=== PATIENT | female | born 1965 | race African-American/Black ===

== ENCOUNTER 2017-08-05 08:21 | Emergency (ER) | payer MEDICARE, MEDICAID ==
[~2017-08-05] VITALS: Ht 167.6 cm; Wt 115.0 kg
[~2017-08-05 08:21] MED LIST: BENZ100 PO; BUPR-197 PO; CYCL-36 PO; EXCUSE; FLON0.053; MAGN1SOL2 PO; MEDR4PAK3 PO; MMW SS; MUCI600T PO; NAPR-576 PO; PRIL20TA2 PO; PROG1CAP21 PO; PROT40TA PO; ZYRT10TA12 PO; [UNRECOGNIZED DRUG - CODE] PO; [UNRECOGNIZED DRUG - REMARK]
[2017-08-05 08:23] VITALS: BP 130/88; PULSE 81; RESP 13; TEMP 98.5; O2SAT 98
--- NOTE | 2017-08-05 08:51 | PD ---
HPI Chief Complaint: Musculoskeletal Complaint Time Seen by Provider: 08:29 Travel History International Travel<30 days: No Contact w/Intl Traveler<30days: No Traveled to known affect area: No History of Present Illness HPI Patient comes in complaining of right knee pain intermittently over the past month and is hoping to get an x-ray. Patient denies any trauma. Patient describes pain as an achy soreness that is worse with resting and improves with movement. Patient denies doing anything for this. Pain is primarily medial anterior aspects radiates to the posterior aspect of her right knee. Denies any numbness or tingling. PFSH Past Medical History GERD: Yes Menopausal: Yes Past Surgical History Eye Surgery: Yes Social History Alcohol Use: No Tobacco Use: No Substance Use: No Allergies-Medications (Allergen,Severity, Reaction): Coded Allergies: fluoxetine (Verified Allergy, Intermediate, Irritability/Anxiety, 08/05/17) Sulfa (Sulfonamide Antibiotics) (Verified Allergy, Unknown, 08/05/17) penicillin G (Verified Allergy, Unknown, 08/05/17) Reported Meds & Prescriptions Reported Meds & Active Scripts Active Medrol Dosepak (Methylprednisolone) 4 Mg Jasmeet 4 Mg PO DIRECTED TAKE DIRECTED Prevacid 15 Mg Cap (Lansoprazole) 15 Mg Capcr 15 Mg PO DAILY Naproxen 500 Mg Tab 500 Mg PO BID Flexeril (Cyclobenzaprine HCl) 10 Mg Tab 10 Mg PO HS Protonix (Pantoprazole Sodium) 40 Mg Tab 40 Mg PO DAILY Mucinex (Guaifenesin) 600 Mg Tabcr 600 Mg PO BID Flonase (Fluticasone Propionate) 0.05 % Naspr 2 Spr NA DAILY 2 SPRAYS EACH NOSTRIL Zyrtec (Cetirizine HCl) 10 Mg Tab 10 Mg PO HS Magic Mouthwash-Diphenhy Formula (Lidocaine/Diphenhydr/Alum/Mg/Simeth) Ml 15 Ml SS Q3HPRN MAGIC MOUTHWASH=MIX 1/3 VISCOUS LIDOCAINE(60 ML),1/3 MAALOX(60 ML), AND 1/3 BENADRYL(60 ML) TO EQUAL 180 ML TOTAL VOLUME Tessalon Perles (Benzonatate) 100 Mg Cap 100 Mg PO TIDPRN Wellbutrin (Bupropion HCl) 100 Mg Tab 100 Mg PO BID [Permission] Until further notice, please allow Ms. Liana Vega to perform other tasks besides the Timothy Machine while we strengthen her lower back. We will re-evaluate her back in one month. [Excuse] [Permission] Please allow Ms. Vega to use the Restroom as needed. It is necessary for her health. Magnesium Citrate 300 Ml Soln 300 Ml PO DIRECTED Reported Prometrium (Progesterone) 200 Mg Cap 200 Mg PO DAILY Prilosec Otc (Omeprazole Magnesium) 20 Mg Tab 20 Mg PO PRN PRN Review of Systems Except as stated in HPI: all other systems reviewed are Neg Physical Exam Narrative GENERAL: Well-developed, overly nourished, in no acute distress, and non-ill appearing. SKIN: Focused skin assessment warm and dry. HEAD: Atraumatic. Normocephalic. ENT: No nasal bleeding or discharge. Mucous membranes pink and moist. NECK: Trachea midline. Supple. No nuclear rigidity. CARDIOVASCULAR: Dorsal pulses 2+, intact, and equal bilaterally. Capillary refill less than 2 seconds. RESPIRATORY: No accessory muscle use. No respiratory distress. MUSCULOSKELETAL: No obvious deformities. No clubbing. No cyanosis. No edema. Full range of motion. Knee: Negative patellar apprehension, varus and valgus maneuvers, anterior draw test, and Joshua test. Pulses equal BL distal to injury. Capillary refill less than 2 seconds distal to injury and equal BL. FROM distal to injury and equal BL. Strength distal to injury equal BL. NV intact distal to injury. Dorsal pulses equal BL. Sensation equal BL 1st web space. Patient reports tenderness to palpation medial aspect of right anterior knee. NEUROLOGICAL: Awake and alert. No obvious cranial nerve deficits. Motor grossly within normal limits. Normal speech. PSYCHIATRIC: Appropriate mood and affect; insight and judgment normal. Data Data Last Documented VS Vital Signs Date Time Temp Pulse Resp B/P (MAP) Pulse Ox O2 Delivery O2 Flow Rate FiO2 08/05/17 09:23 08/05/17 08:23 98.5 81 13 98 Orders Orders Knee, Complete (4vws) (08/05/17 ) Splint Or Brace Apply/Monitor (08/05/17 09:15) MDM Medical Decision Making Medical Screen Exam Complete: Yes Emergency Medical Condition: Yes Interpretation(s) X-ray of the right knee read by the radiologist shows: Unremarkable examination of the right knee. Differential Diagnosis Fracture, strain, contusion, bursitis, arthritis, other Narrative Course There is no clinical evidence for fracture. There is no clinical evidence to suspect bony injury by exam. Radiographic examination revealed no fracture seen at this time. No obvious ligamental injury or internal derangement is noted at this time. The distal extremity appears neurovascularly intact, without evidence of neurovascular injury nor compartment syndrome. Tendon exam also was intact. The effected limb was splinted. The patient was discharged and given warnings for vascular compromise. The patient is to follow up with their primary care doctor. The patient agrees with plan. Patient in no obvious distress upon re-evaluation. All pertinent Radiology result(s) discussed with patient. Any questions/concerns in reference to patient diagnosis/condition discussed and clarified prior to patient's discharge. Reinforced sheer importance of close follow up with patient's primary physician or primary care clinic. Instructed patient to return to ED immediately, if symptoms return/worsen. Patient showed understanding of above instructions. Further instructions and recommendations were detailed in discharge paperwork. Patient ambulated without difficulty out of ED at discharge. Diagnosis Primary Impression: Right knee pain Qualified Codes: M25.561 - Pain in right knee Patient Instructions: General Instructions, Knee Pain (ED) Additional Instructions: Follow-up with your primary care physician next week for reevaluation. Wear Asaf wrap as needed for comfort. Return to the emergency department if symptoms get worse. Disposition: 01 DISCHARGE HOME Condition: Stable [place] Call Aug 05, 2017 08:51
--- NOTE | 2017-08-05 09:09 | RADRPT ---
EXAM DATE/TIME: 08/05/2017 08:53 [facility] COMPARISON: No previous studies available for comparison. INDICATIONS : No known injury, pain posterior knee radiating into medial knee. MEDICAL HISTORY : Visually impaired. SURGICAL HISTORY : None. ENCOUNTER: Initial ACUITY: 2 days PAIN SCORE: 10/10 LOCATION: Right knee. FINDINGS: Four view examination of the right knee demonstrates no evidence of fracture or dislocation. Bony mi neralization is normal. The articular surfaces are intact. The suprapatellar soft tissues have a no rmal configuration. CONCLUSION: Unremarkable examination of the right knee. Kelechi Hernandez MD on August 05, 2017 at 9:07 Board Certified Radiologist. This report was verified electronically.
== END 2017-08-05 09:29 | disposition home or self-care (01) ==
LOC: NEPK 08:21
DX: M25.561 Pain in right knee (principal); Z87.19 Personal history of other diseases of the digestive system
CPT/HCPCS: 73564; 99283